=== PATIENT | male | born 1975 | race Caucasian/White ===

== ENCOUNTER 2019-11-09 08:06 | Emergency (ER) | payer OTHER, MEDICAID, SELFPAY ==
[2019-11-09 08:16] VITALS: BP 140/75; PULSE 102; O2SAT 97
[2019-11-09 08:19] VITALS: BP 140/75; PULSE 103; RESP 22; TEMP 36.9; O2SAT 97; BMI 30.7
[2019-11-09 08:30] VITALS: BP 126/66; PULSE 94; TEMP 36.7; O2SAT 98
--- NOTE | 2019-11-09 08:50 | ED.SKABFB ---
HPI - Skin/Abscess/Foreign Bdy General Chief complaint: Skin/Abscess/Foreign Body Stated complaint: thinks he has mrsa on right thigh Time Seen by Provider: 11/09/19 08:26 Source: patient Mode of arrival: Ambulatory Limitations: no limitations History of Present Illness HPI narrative: Patient tried lancing a small abscess on the right upper lateral thigh 3 days ago. Since then has had erythema induration and pain. No discharge. No fevers. No prior treatment by any providers for abscesses or cellulitis. One week ago he self-treated a left triceps abscess with lancing it. Was doing well. Denies any diabetes or IV drug use or immunosuppression Related Data Previous Rx's Medication Instructions Recorded doxycycline monohydrate 100 mg PO BID #20 cap 11/09/19 ibuprofen 800 mg PO Q8H PRN #20 tab 11/09/19 Allergies Allergy/AdvReac Type Severity Reaction Status Date / Time carbamazepine [From Tegretol] Allergy Intermediate Seizure Verified 11/09/19 08:23 Review of Systems Review of Systems Narrative: GENERAL: Denies chills, fatigue, malaise, fever, sweats. HEENT: Denies sinus pain, ear pain, sore throat, difficulty swallowing, dizziness. RESPIRATORY: Denies dyspnea, cough, wheezing, hemoptysis, sputum. CARDIOVASCULAR: Denies chest pain, palpitations, orthopnea, edema, GASTROINTESTINAL: Denies nausea, vomiting, abdominal pain, diarrhea, constipation, melena. : Denies dysuria, frequency, incontinence, hematuria, urinary retention. MUSCULOSKELETAL: denies weakness, joint pain, or bony pain SKIN: Complains of abscess/cellulitis/erythema/induration NEUROLOGIC: Denies weakness, headache, numbness, change in speech, confusion, seizures, incoordination. PSYCHIATRIC: No concerning psychosocial issues. ROS Unobtainable: All systems reviewed & are unremarkable except as noted in HPI and below Patient History Social History Smoking Status: Current every day smoker Smoking Status: Current every day smoker tobacco type: cigarettes alcohol intake frequency: 0-2 drinks per day Substance Use Type: does not use Exam Narrative Exam Narrative: GENERAL: patient appears stated age. Well-nourished, well-developed patient, in no distress, not toxic HEAD: Atraumatic. Normocephalic. EXTREMITIES: Patient in underwear, examination right lower extremity. There is induration erythema/abscess/cellulitis right upper lateral thigh. Indurated skin measures 8 cm. No central fluctuance. Surrounding erythema measures 16 cm. No incision drainage at this time. NEURO: AOx4. PSYCH: Not anxious, is cooperative Initial Vital Signs Initial Vital Signs: Vital Signs Pulse Rate 102 H 11/09/19 08:16 Blood Pressure 140/75 11/09/19 08:16 Pulse Oximetry 97 11/09/19 08:16 Course Orders Ordered: Discontinued Medications Doxycycline Hyclate (Vibramycin) 100 mg PO NOW ONE Stop: 11/09/19 08:50 Last Admin: 11/09/19 09:08 Dose: 100 mg Documented by: JACOB Vital Signs Vital signs: Vital Signs - 8 hr 11/09/19 08:16 11/09/19 08:19 11/09/19 08:30 Temperature 98.5 F 98.1 F Pulse Rate 102 H 103 H 94 H Respiratory Rate 22 Blood Pressure 140/75 140/75 126/66 Pulse Oximetry 97 97 98 11/09/19 09:00 Temperature Pulse Rate 89 Respiratory Rate Blood Pressure 121/69 Pulse Oximetry 98 MDM - Skin/Abscess/Foreign Bdy Differential Diagnosis Differential diagnosis: Likely abscess of skin or subcutaneous tissue and cellulitis MDM Narrative Medical decision making narrative: No labs or imaging indicated this time. Onset 3 days ago not toxic. No fever. No incision drainage as there is no areas of fluctuance for incision and drainage. Patient is up-to-date with tetanus shot. Less than 3 years. Appropriate for discharge home with oral outpatient antibiotics Discharge Plan Departure Patient Disposition: Home Clinical Impression: Abscess of skin or subcutaneous tissue Qualifiers: Site of cutaneous abscess: extremity Site of cutaneous abscess of extremity: lower extremity Laterality: right Qualified Code(s): L02.415 - Cutaneous abscess of right lower limb Discharge Date/Time: 11/09/19 09:15 Instructions: DI for Cellulitis -- Adult, DI for Skin Abscess Activity Restrictions/Additional Instructions: Use warm compresses to skin 20 minutes at time every hour while awake. Finish all the antibiotics prescribed to, sent to [facility]. Called provided clinic office today for appointment for recheck next week. Return if worse or if any questions or concerns or increased pain or redness or any discharge from the skin Prescriptions: New doxycycline monohydrate 100 mg capsule 100 mg PO BID Qty: 20 RF: 0 ibuprofen 800 mg tablet 800 mg PO Q8H PRN (Reason: pain) Qty: 20 RF: 0 Referrals: [facility] [Outside]
[2019-11-09 09:00] VITALS: BP 121/69; PULSE 89; O2SAT 98
[2019-11-09] MEDS: DOXYCYCLINE HYCLATE 100 MG TABLET PO (09:08)
== END 2019-11-09 09:15 | disposition home or self-care (01) ==
PROVIDERS: Emergency Provider Emergency Medicine
DX: L02.415 Cutaneous abscess of right lower limb (principal)
CPT/HCPCS: 99283

== ENCOUNTER 2019-11-10 19:08 | Emergency (ER) | payer OTHER, MEDICAID, SELFPAY ==
[2019-11-10 19:20] VITALS: BP 148/77; PULSE 93; RESP 16; O2SAT 96; BMI 32.1
--- NOTE | 2019-11-10 19:45 | ED.SKABFB ---
HPI - Skin/Abscess/Foreign Bdy <PEÑA Harris - Last Filed: 11/10/19 21:21> General Chief complaint: Skin/Abscess/Foreign Body Stated complaint: states MRSA on his side,says meds too weak Time Seen by Provider: 11/10/19 19:28 Source: patient Mode of arrival: Ambulatory Limitations: no limitations History of Present Illness HPI narrative: The patient is a 44-year-old male current smoker with history of MRSA infection of thumb who presents with a chief complaint of MRSA on his lateral right upper thigh. He was seen and evaluated this facility yesterday, started on doxycycline. He states he has taken about 2 doses of the doxycycline, and he is concerned that medication is not strong enough. He denies any fevers nausea vomiting or diarrhea. He does have some chills. He states he feels tired. He is states he does use IV methamphetamine. He states that his tetanus is up-to-date. He states that he 1st noticed this abscess about 4 days ago, and has taking care of abscesses by himself on his left elbow. He states that the abscesses ?disgusting. Related Data Previous Rx's Medication Instructions Recorded doxycycline monohydrate 100 mg PO BID #20 cap 11/09/19 ibuprofen 800 mg PO Q8H PRN #20 tab 11/09/19 cephalexin 500 mg PO TID #21 cap 11/10/19 Allergies Allergy/AdvReac Type Severity Reaction Status Date / Time carbamazepine [From Tegretol] Allergy Intermediate Seizure Verified 11/09/19 08:23 Review of Systems <PEÑA Harris - Last Filed: 11/10/19 21:21> Review of Systems Narrative: GENERAL: See HPI HEENT: Denies sinus pain, ear pain, sore throat, difficulty swallowing, dizziness. RESPIRATORY: Denies dyspnea, cough, wheezing, hemoptysis, sputum. CARDIOVASCULAR: Denies chest pain, palpitations, orthopnea, edema, GASTROINTESTINAL: Denies nausea, vomiting, abdominal pain, diarrhea, constipation, melena. : Denies dysuria, frequency, incontinence, hematuria, urinary retention. MUSCULOSKELETAL: denies weakness, joint pain, or bony pain SKIN: See HPI NEUROLOGIC: Denies weakness, headache, numbness, change in speech, confusion, seizures, incoordination. PSYCHIATRIC: No concerning psychosocial issues. 12 point review of systems is negative except for those stated above Patient History <Abena JaureguiSALENA-BC - Last Filed: 11/10/19 21:21> Social History Smoking Status: Current every day smoker Smoking Status: Current every day smoker tobacco type: cigarettes alcohol intake frequency: 0-2 drinks per day Substance Use Type: does not use Exam <Abena JaureguiJO ANNBC - Last Filed: 11/10/19 21:21> Narrative Exam Narrative: GENERAL: This is a well-nourished, well-developed patient, no acute distress HEAD: Atraumatic. Normocephalic. No temporal or scalp tenderness. EYES: Pupils equal round and reactive. Extraocular motions intact. No scleral icterus. No injection or drainage. ENT: Nose without bleeding, purulent drainage or septal hematoma. Throat without erythema, tonsillar hypertrophy or exudate. Uvula midline. Airway patent. NECK: Trachea midline. No JVD or lymphadenopathy. Supple, nontender, no meningeal signs. CARDIOVASCULAR: Regular rate and rhythm RESPIRATORY: Clear to auscultation. Breath sounds equal bilaterally. No wheezes, rales, or rhonchi. No cough. No increased respiratory effort accessory muscle use. GASTROINTESTINAL: Abdomen soft, non-tender, nondistended. No hepato-splenomegaly, or palpable masses. No guarding. EXTREMITIES: No clubbing, cyanosis, or edema. No joint tenderness, effusion, or edema noted. BACK: Nontender without deformity or crepitance. No flank tenderness. NEURO: AOx3. SKIN: 8 cm area of induration noted on lateral aspect of right thigh joining purulence drainage, no fluctuance noted. Surrounding erythema approximately 18 cm. Approximately 2 cm beyond marking done in emergency department yesterday. Initial Vital Signs Initial Vital Signs: Vital Signs Pulse Rate 93 H 11/10/19 19:20 Respiratory Rate 16 11/10/19 19:20 Blood Pressure 148/77 H 11/10/19 19:20 Pulse Oximetry 96 11/10/19 19:20 <Sunni Hernandez MD - Last Filed: 11/10/19 23:22> Initial Vital Signs Initial Vital Signs: Vital Signs Pulse Rate 93 H 11/10/19 19:20 Respiratory Rate 16 11/10/19 19:20 Blood Pressure 148/77 H 11/10/19 19:20 Pulse Oximetry 96 11/10/19 19:20 Course <SALNEA Harris- - Last Filed: 11/10/19 21:21> Orders Ordered: ED Orders 11/10/19 19:30 Complete Blood Count AUTO DIFF Stat Comprehensive Metabolic Panel Stat Lactate (Lactic Acid) Stat Procalcitonin Stat 11/10/19 19:47 Wound Culture and Gram Stain Stat 11/10/19 19:50 Blood Culture Stat 11/10/19 20:45 Lactate (Lactic Acid) Stat Discontinued Medications Sodium Chloride (Normal Saline 0.9%) 1,000 mls @ 1,000 mls/hr IV BOLUS ONE Stop: 11/10/19 21:05 Last Infusion: 11/10/19 21:18 Dose: 0 mls/hr Documented by: Admin: 11/10/19 20:16 Dose: 1,000 mls/hr Documented by: VEENA Ceftriaxone Sodium/Dextrose (Rocephin) 2 gm in 50 mls @ 100 mls/hr IV NOW ONE Stop: 11/10/19 20:35 Last Infusion: 11/10/19 21:18 Dose: 0 mls/hr Documented by: Admin: 11/10/19 20:16 Dose: 100 mls/hr Documented by: VEENA Vital Signs Vital signs: Vital Signs - 8 hr 11/10/19 19:20 11/10/19 20:11 11/10/19 21:26 Temperature 98.1 F Pulse Rate 93 H 92 H 85 Respiratory Rate 16 12 Blood Pressure 148/77 H 116/62 109/61 Pulse Oximetry 96 97 98 <Sunni Hernandez MD - Last Filed: 11/10/19 23:22> Orders Ordered: ED Orders 11/10/19 19:30 Complete Blood Count AUTO DIFF Stat Comprehensive Metabolic Panel Stat Lactate (Lactic Acid) Stat Procalcitonin Stat 11/10/19 19:47 Wound Culture and Gram Stain Stat 11/10/19 19:50 Blood Culture Stat 11/10/19 20:45 Lactate (Lactic Acid) Stat Discontinued Medications Sodium Chloride (Normal Saline 0.9%) 1,000 mls @ 1,000 mls/hr IV BOLUS ONE Stop: 11/10/19 21:05 Last Infusion: 11/10/19 21:18 Dose: 0 mls/hr Documented by: Admin: 11/10/19 20:16 Dose: 1,000 mls/hr Documented by: VEENA Ceftriaxone Sodium/Dextrose (Rocephin) 2 gm in 50 mls @ 100 mls/hr IV NOW ONE Stop: 11/10/19 20:35 Last Infusion: 11/10/19 21:18 Dose: 0 mls/hr Documented by: Admin: 11/10/19 20:16 Dose: 100 mls/hr Documented by: VEENA Vital Signs Vital signs: Vital Signs - 8 hr 11/10/19 19:20 11/10/19 20:11 11/10/19 21:26 Temperature 98.1 F Pulse Rate 93 H 92 H 85 Respiratory Rate 16 12 Blood Pressure 148/77 H 116/62 109/61 Pulse Oximetry 96 97 98 MDM - Skin/Abscess/Foreign Bdy <JO ANN Harris - Last Filed: 11/10/19 21:21> Lab Data Result diagrams: 11/10/19 19:30 11/10/19 19:30 Labs: Lab Results 11/10/19 11/10/19 11/10/19 Range/Units 19:30 19:30 19:30 WBC 11.0 (4.5-11.0) X10^3/uL RBC 5.06 (4.5-5.9) X10^6/uL Hgb 14.7 (13.5-17.5) g/dL Hct 43.2 (41-53) % MCV 85.5 (80-100) fL MCH 29.0 (26-34) PG MCHC 33.9 (30-36) % RDW 13.8 (11.6-14.8) % Plt Count 327 (150-400) X10^3/uL Neut % (Auto) 74.6 (50-75) % Lymph % (Auto) 15.4 L (25-40) % Marion % (Auto) 8.3 (3-14) % Eos % (Auto) 1.4 L (2-4) % Baso % (Auto) 0.3 (0-2) % Neut # (Auto) 8200 H (9891-2869) /uL Lymph # (Auto) 1700 (4893-9986) /uL Marion # (Auto) 900 (0-900) /uL Eos # (Auto) 200 (0-450) /uL Baso # (Auto) 0 (0-100) /uL Sodium 136 L (137-145) mmol/L Potassium 3.6 (3.4-5.1) mmol/L Chloride 101 (98-107) mmol/L Carbon Dioxide 27 (22-32) mmol/L BUN 10 (9-20) mg/dL Creatinine 0.88 (0.66-1.25) mg/dL Estimated GFR > 60.0 (>60) mL/min BUN/Creatinine Ratio 11.4 (6-22) Glucose 146 H (70-100) mg/dL Lactate (0.7-2.1) mmol/L Calcium 8.7 (8.4-10.2) mg/dL Total Bilirubin 0.5 (0.2-1.3) mg/dL AST 61 H (17-59) IU/L ALT 43 (<50) IU/L Alkaline Phosphatase 110 (38-126) U/L Total Protein 7.1 (6.3-8.2) g/dL Albumin 3.7 (3.5-5.0) g/dL Globulin 3.4 (1.7-4.1) g/dL Albumin/Globulin Ratio 1.1 (1.0-2.8) Procalcitonin 0.57 H (<0.5) ng/mL 11/10/19 11/10/19 Range/Units 19:30 20:45 WBC (4.5-11.0) X10^3/uL RBC (4.5-5.9) X10^6/uL Hgb (13.5-17.5) g/dL Hct (41-53) % MCV (80-100) fL MCH (26-34) PG MCHC (30-36) % RDW (11.6-14.8) % Plt Count (150-400) X10^3/uL Neut % (Auto) (50-75) % Lymph % (Auto) (25-40) % Marion % (Auto) (3-14) % Eos % (Auto) (2-4) % Baso % (Auto) (0-2) % Neut # (Auto) (0420-2505) /uL Lymph # (Auto) (1705-2087) /uL Marion # (Auto) (0-900) /uL Eos # (Auto) (0-450) /uL Baso # (Auto) (0-100) /uL Sodium (137-145) mmol/L Potassium (3.4-5.1) mmol/L Chloride (98-107) mmol/L Carbon Dioxide (22-32) mmol/L BUN (9-20) mg/dL Creatinine (0.66-1.25) mg/dL Estimated GFR (>60) mL/min BUN/Creatinine Ratio (6-22) Glucose (70-100) mg/dL Lactate 2.0 1.2 (0.7-2.1) mmol/L Calcium (8.4-10.2) mg/dL Total Bilirubin (0.2-1.3) mg/dL AST (17-59) IU/L ALT (<50) IU/L Alkaline Phosphatase (38-126) U/L Total Protein (6.3-8.2) g/dL Albumin (3.5-5.0) g/dL Globulin (1.7-4.1) g/dL Albumin/Globulin Ratio (1.0-2.8) Procalcitonin (<0.5) ng/mL MDM Narrative Medical decision making narrative: The patient is a 44-year-old male with history of IV methamphetamine who presents with a chief complaint of an abscess and cellulitis not improving after started antibiotics yesterday. States he has had 2-3 doses of doxycycline total. He feels like he needs stronger antibiotics. The patient's exam is overall reassuring, the erythema has barely extended from yesterday's outlined. He is afebrile, nontoxic appearing. He has no signs of hemodynamic compromise, is normotensive, afebrile, not tachycardic. I would not expect to doses of doxycycline to have significant impact on his cellulitis and abscess at this point time. His abscess is draining well, culture was taken. The patient has no leukocytosis on his lab work, lactate of 2.0, procalcitonin of 0.57. Discussed case with Dr Hernandez. The patient does admit to use of IV methamphetamine, which could be changing his labs. He was given 2 g Rocephin in the emergency department and I did place him on Keflex. The patient would like to leave the hospital at this point time I believe that is safe. I discussed at length monitoring for signs of systemic illness such as fever, vomiting etcetera. Discussed using sunscreen with continuing the doxycycline, probiotics or yogurt with antibiotics. Discussed at length the importance of following up with primary care provider. Patient has no questions or concerns upon discharge and states understanding of return precautions as well as follow-up care. <Sunni Hernandez MD - Last Filed: 11/10/19 23:22> Lab Data Labs: Lab Results 11/10/19 11/10/19 11/10/19 Range/Units 19:30 19:30 19:30 WBC 11.0 (4.5-11.0) X10^3/uL RBC 5.06 (4.5-5.9) X10^6/uL Hgb 14.7 (13.5-17.5) g/dL Hct 43.2 (41-53) % MCV 85.5 (80-100) fL MCH 29.0 (26-34) PG MCHC 33.9 (30-36) % RDW 13.8 (11.6-14.8) % Plt Count 327 (150-400) X10^3/uL Neut % (Auto) 74.6 (50-75) % Lymph % (Auto) 15.4 L (25-40) % Marion % (Auto) 8.3 (3-14) % Eos % (Auto) 1.4 L (2-4) % Baso % (Auto) 0.3 (0-2) % Neut # (Auto) 8200 H (4118-7158) /uL Lymph # (Auto) 1700 (7295-8691) /uL Marion # (Auto) 900 (0-900) /uL Eos # (Auto) 200 (0-450) /uL Baso # (Auto) 0 (0-100) /uL Sodium 136 L (137-145) mmol/L Potassium 3.6 (3.4-5.1) mmol/L Chloride 101 (98-107) mmol/L Carbon Dioxide 27 (22-32) mmol/L BUN 10 (9-20) mg/dL Creatinine 0.88 (0.66-1.25) mg/dL Estimated GFR > 60.0 (>60) mL/min BUN/Creatinine Ratio 11.4 (6-22) Glucose 146 H (70-100) mg/dL Lactate (0.7-2.1) mmol/L Calcium 8.7 (8.4-10.2) mg/dL Total Bilirubin 0.5 (0.2-1.3) mg/dL AST 61 H (17-59) IU/L ALT 43 (<50) IU/L Alkaline Phosphatase 110 (38-126) U/L Total Protein 7.1 (6.3-8.2) g/dL Albumin 3.7 (3.5-5.0) g/dL Globulin 3.4 (1.7-4.1) g/dL Albumin/Globulin Ratio 1.1 (1.0-2.8) Procalcitonin 0.57 H (<0.5) ng/mL 11/10/19 11/10/19 Range/Units 19:30 20:45 WBC (4.5-11.0) X10^3/uL RBC (4.5-5.9) X10^6/uL Hgb (13.5-17.5) g/dL Hct (41-53) % MCV (80-100) fL MCH (26-34) PG MCHC (30-36) % RDW (11.6-14.8) % Plt Count (150-400) X10^3/uL Neut % (Auto) (50-75) % Lymph % (Auto) (25-40) % Marion % (Auto) (3-14) % Eos % (Auto) (2-4) % Baso % (Auto) (0-2) % Neut # (Auto) (5119-6362) /uL Lymph # (Auto) (8938-6741) /uL Marion # (Auto) (0-900) /uL Eos # (Auto) (0-450) /uL Baso # (Auto) (0-100) /uL Sodium (137-145) mmol/L Potassium (3.4-5.1) mmol/L Chloride (98-107) mmol/L Carbon Dioxide (22-32) mmol/L BUN (9-20) mg/dL Creatinine (0.66-1.25) mg/dL Estimated GFR (>60) mL/min BUN/Creatinine Ratio (6-22) Glucose (70-100) mg/dL Lactate 2.0 1.2 (0.7-2.1) mmol/L Calcium (8.4-10.2) mg/dL Total Bilirubin (0.2-1.3) mg/dL AST (17-59) IU/L ALT (<50) IU/L Alkaline Phosphatase (38-126) U/L Total Protein (6.3-8.2) g/dL Albumin (3.5-5.0) g/dL Globulin (1.7-4.1) g/dL Albumin/Globulin Ratio (1.0-2.8) Procalcitonin (<0.5) ng/mL Discharge Plan Departure Patient Disposition: Home Clinical Impression: Abscess of skin or subcutaneous tissue Qualifiers: Site of cutaneous abscess: extremity Site of cutaneous abscess of extremity: lower extremity Laterality: right Qualified Code(s): L02.415 - Cutaneous abscess of right lower limb Discharge Date/Time: 11/10/19 21:28 Instructions: DI for Skin Abscess Activity Restrictions/Additional Instructions: Thank you for trusting us with your care today. Today your lab work and exam was very reassuring. Please continue your doxycycline. Please take this with probiotic or yogurt, and remembered worsen screen if your exposed to the sun with this medication. I also sent a new prescription to [facility]. This is an antibiotic that is a pill version of what we put in your IV tonight. You can start this tomorrow. Please monitor for fever, vomiting, extending redness or any signs of worsening. Please come back to the emergency department for any acute concerns. Please continue to use warm packs. As discussed, please follow-up with primary care provider in the next few days. Prescriptions: New cephalexin 500 mg capsule 500 mg PO TID Qty: 21 RF: 0 No Action doxycycline monohydrate 100 mg capsule 100 mg PO BID Qty: 20 RF: 0 ibuprofen 800 mg tablet 800 mg PO Q8H PRN (Reason: pain) Qty: 20 RF: 0 Referrals: [facility] [Outside] <uSnni Hernandez MD - Last Filed: 11/10/19 23:22> Cosign ED Attending Cossantiagoature Attestation: I was immediately available in the department for consultation throughout this patient's visit. I agree with documentation as above. Sunni Hernandez MD
[2019-11-10 19:48] LABS: Add Manual Diff / Slide Review NO; Basophils Absolute Auto 0 /uL (0-100); Basophils Percent Auto 0.3 % (0-2); Eosinophils Absolute Auto 200 /uL (0-450); Eosinophils Percent Auto 1.4 % (2-4); Hematocrit 43.2 % (41-53); Hemoglobin 14.7 g/dL (13.5-17.5); Lymphocytes Absolute Auto 1700 /uL (1100-4500); Lymphocytes Percent Auto 15.4 % (25-40); Mean Corpuscular HGB Conc 33.9 % (30-36); Mean Corpuscular Volume 85.5 fL (80-100); Monocytes Absolute Auto 900 /uL (0-900); Monocytes Percent Auto 8.3 % (3-14); Neutrophils Absolute Auto 8200 /uL (1500-7000); Neutrophils Percent Auto 74.6 % (50-75); Platelet Count 327 X10^3/uL (150-400); Red Blood Cell Count 5.06 X10^6/uL (4.5-5.9); Red Cell Distribution Width 13.8 % (11.6-14.8)
[2019-11-10 19:54] LABS: Alanine Aminotransferase 43 IU/L (<50); Albumin 3.7 g/dL (3.5-5.0); Albumin Globulin Ratio 1.1 (1.0-2.8); Alkaline Phosphatase 110 U/L (38-126); Aspartate Aminotransferase 61 IU/L (17-59); BUN Creatinine Ratio 11.4 (6-22); Bilirubin Total 0.5 mg/dL (0.2-1.3); Blood Urea Nitrogen 10 mg/dL (9-20); Calcium 8.7 mg/dL (8.4-10.2); Carbon Dioxide 27 mmol/L (22-32); Chloride 101 mmol/L (98-107); Estimated Glomerular Filt Rate > 60.0 mL/min (>60); Globulin 3.4 g/dL (1.7-4.1); Glucose 146 mg/dL (70-100); HEMOLYSIS 28 (0-50); Potassium 3.6 mmol/L (3.4-5.1); Sodium 136 mmol/L (137-145); Total Protein 7.1 g/dL (6.3-8.2)
[2019-11-10 20:11] VITALS: BP 116/62; PULSE 92; TEMP 36.7; O2SAT 97
[2019-11-10] MEDS: CEFTRIAXONE 2 GM/50 ML FROZ.PIGGY IV (20:16)
[2019-11-10] MEDS: SODIUM CHLORIDE 0.9% 1,000 ML 1000 ML IV (20:16)
[2019-11-10 20:39] LABS: Procalcitonin 0.57 ng/mL (<0.5)
[2019-11-10 21:03] LABS: Lactate (Lactic Acid) 1.2 mmol/L (0.7-2.1)
[2019-11-10 21:26] VITALS: BP 109/61; PULSE 85; RESP 12; O2SAT 98
[2019-11-10 21:43] LABS: Reflexed Lactate in 2 Hours Y
== END 2019-11-10 21:28 | disposition home or self-care (01) ==
PROVIDERS: Emergency Provider Nurse Practitioner Family
DX: L02.415 Cutaneous abscess of right lower limb (principal); A49.02 Methicillin resistant Staphylococcus aureus infection, unspecified site
CPT/HCPCS: 36415; 80053; 83605; 84145; 85025; 87040; 87070; 87075; 87077; 87147; 87186; 87205; 96365; 99284; J0696

== ENCOUNTER 2020-12-30 16:59 | Emergency (ER) | payer OTHER, MEDICAID, SELFPAY ==
[2020-12-30 17:00] VITALS: BP 157/76; PULSE 103; RESP 18; TEMP 37.1; O2SAT 94; BMI 28.7
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
--- NOTE | 2020-12-30 17:17 | PC.NURSE ---
Pt's R arm put into a sling and ice pack applied
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
== END 2020-12-30 19:05 | disposition home or self-care (01) ==
PROVIDERS: Emergency Provider Emergency Medicine
DX: S50.11XA Contusion of right forearm, initial encounter (principal); Y08.02XA Assault by strike by baseball bat, initial encounter
CPT/HCPCS: 73090; 99281; 99283